=== PATIENT | female | born 1955 | race Caucasian/White ===

== ENCOUNTER → 2023-08-09 18:24 | Outpatient (REF) | payer MEDICARE, BC, SELFPAY | LOC: WDC 18:24 | PROVIDERS: ATTENDING PHYSICIAN Radiology Radiation Oncology; FAMILY PHYSICIAN Family Medicine | DX: Z12.31 Encounter for screening mammogram for malignant neoplasm of breast (principal) | CPT/HCPCS: 77063; 77067 ==

== ENCOUNTER → 2023-08-11 15:51 | Outpatient (REF) | payer MEDICARE, BC, SELFPAY | LOC: HWRAD 15:51 | PROVIDERS: ATTENDING PHYSICIAN Nurse Practitioner; FAMILY PHYSICIAN Family Medicine | DX: M54.2 Cervicalgia (principal) | CPT/HCPCS: 72052 ==

== ENCOUNTER → 2023-08-12 06:59 | Outpatient (REF) | payer MEDICARE, BC, SELFPAY ==
[2023-08-12 09:32] LABS: Glycohemoglobin (HgbA1c) 6.3 % (4.0-5.6)
[2023-08-12 10:53] LABS: ALT (SGPT) 21 U/L (0-35); AST (SGOT) 20 U/L (14-36); Albumin 3.8 g/dl (3.5-5.0); Alkaline Phosphatase 77 U/L (38-126); Blood Urea Nitrogen 24 mg/dl (7-17); Calcium 9.4 mg/dl (8.4-10.2); Carbon Dioxide 27 mmol/L (22-30); Chloride 104 mmol/L (98-107); Glucose 91 mg/dl (70-99); HDL Cholesterol 64 mg/dl; LDL Cholesterol, Calculated 65 mg/dl; Potassium 3.7 mmol/L (3.5-5.1); Sodium 141 mmol/L (135-145); Total Bilirubin 1.1 mg/dl (0.2-1.3); Total Cholesterol 155 mg/dl (50-199); Total Protein 6.9 g/dl (6.3-8.2); Triglyceride 132 mg/dl (10-149); Very Low Density Lipoprotein 26 mg/dl (0-30); eGFR > 60.00
== END ==
LOC: HWLAB 06:59
PROVIDERS: ATTENDING PHYSICIAN Family Medicine
DX: E11.69 Type 2 diabetes mellitus with other specified complication (principal)
CPT/HCPCS: 36415; 80053; 80061; 83036

== ENCOUNTER → 2023-08-13 15:53 | Outpatient (REF) | payer MEDICARE, BC, SELFPAY | LOC: HWRAD 15:53 | PROVIDERS: ATTENDING PHYSICIAN Podiatrist Foot Surgery; FAMILY PHYSICIAN Family Medicine | DX: M79.672 Pain in left foot (principal); M25.572 Pain in left ankle and joints of left foot | CPT/HCPCS: 73610; 73630 ==

== ENCOUNTER → 2023-08-25 07:11 | Outpatient (REF) | payer MEDICARE, BC, SELFPAY ==
[2023-08-25 09:52] LABS: % Basophils 0.8 % (0-2); % Eosinophils 3.9 % (0-6); % Immature Granulocytes 0.2 % (0-0.5); % Lymphocytes 12.3 % (20.5-51.1); % Monocytes 11.2 % (1.7-9.3); % Neutrophils 71.6 % (42.2-75.2); Absolute Eosinophils 0.2 10^3/uL (0-0.7); Absolute Lymphocytes 0.6 10^3/uL (1.2-3.4); Absolute Monocytes 0.6 10^3/uL (0.1-0.6); Absolute Neutrophils 3.7 10^3/uL (1.4-6.5); Hematocrit 37.5 % (37.0-47.0); Hemoglobin 12.1 g/dL (12.0-16.0); Mean Corp Hgb Conc. 32.3 g/dL (33.0-37.0); Mean Corpuscular Hgb 29.6 pg (27.0-31.0); Mean Corpuscular Volume 91.7 fL (81.0-99.0); Mean Platelet Volume 9.7 fL (7.4-10.4); Nucleated Red Blood Cells % 0 %; Platelet Count 216 10^3/uL (130-400); Red Blood Cell Count 4.09 10^6/uL (4.20-5.40); Red Cell Dist. Width 13.2 % (11.5-14.5); White Blood Cell Count 5.1 10^3/uL (4.8-10.8)
[2023-08-25 10:06] LABS: Erythrocyte Sed Rate 59 mm/hour (0-20)
[2023-08-25 10:28] LABS: C-Reactive Protein < 5.00 mg/L (0.0-10.00)
== END ==
LOC: HWLAB 07:11
PROVIDERS: ATTENDING PHYSICIAN Hospitalist; FAMILY PHYSICIAN Family Medicine
DX: M15.4 Erosive (osteo)arthritis (principal); Z79.899 Other long term (current) drug therapy
CPT/HCPCS: 36415; 85025; 85652; 86140

== ENCOUNTER → 2024-02-18 07:01 | Outpatient (REF) | payer MEDICARE, BC, SELFPAY ==
[2024-02-18 09:57] LABS: Urine Albumin Negative (Neg - Trace); Urine Bilirubin Negative (Negative); Urine Character Clear (Clear); Urine Color Yellow; Urine Glucose Negative (Negative); Urine Ketone Negative (Negative); Urine Leukocyte Trace (Negative); Urine Nitrite Negative (Negative); Urine Occult Blood Negative (Negative); Urine Specific Gravity 1.015 (<1.030); Urine Urobilinogen Negative (Neg - 1+)
[2024-02-18 10:25] LABS: ALT (SGPT) 25 U/L (0-35); AST (SGOT) 28 U/L (14-36); Albumin 4.3 g/dl (3.5-5.0); Alkaline Phosphatase 91 U/L (38-126); Blood Urea Nitrogen 23 mg/dl (7-17); Calcium 9.6 mg/dl (8.4-10.2); Carbon Dioxide 27 mmol/L (22-30); Chloride 102 mmol/L (98-107); Glucose 104 mg/dl (70-99); HDL Cholesterol 61 mg/dl; LDL Cholesterol, Calculated 76 mg/dl; Potassium 4.2 mmol/L (3.5-5.1); Sodium 143 mmol/L (135-145); Total Cholesterol 158 mg/dl (50-199); Total Protein 6.9 g/dl (6.3-8.2); Triglyceride 109 mg/dl (10-149); Very Low Density Lipoprotein 21 mg/dl (0-30); eGFR > 60.00
[2024-02-18 10:25] LABS: Urine Bacteria Few (Negative); Urine Red Blood Cell 0-2 /HPF (0-2); Urine White Cell 0-2 /HPF (0-5)
[2024-02-18 10:52] LABS: Microalbumin, Random Urine <0.6 mg/dl (0.6-1.7)
[2024-02-18 11:00] LABS: Glycohemoglobin (HgbA1c) 6.2 % (4.0-5.6)
== END ==
LOC: HWLAB 07:01
PROVIDERS: ATTENDING PHYSICIAN Family Medicine
DX: E78.2 Mixed hyperlipidemia (principal); E11.69 Type 2 diabetes mellitus with other specified complication
CPT/HCPCS: 36415; 80053; 80061; 81003; 81015; 82043; 82570; 83036

== ENCOUNTER → 2024-08-14 18:02 | Outpatient (REF) | payer MEDICARE, BC, SELFPAY | LOC: WDC 18:02 | PROVIDERS: ATTENDING PHYSICIAN Family Medicine Geriatric Medicine; FAMILY PHYSICIAN Family Medicine | DX: Z12.31 Encounter for screening mammogram for malignant neoplasm of breast (principal) | CPT/HCPCS: 77063; 77067 ==

== ENCOUNTER → 2024-08-18 07:05 | Outpatient (REF) | payer MEDICARE, BC, SELFPAY ==
[2024-08-18 09:47] LABS: ALT (SGPT) 22 U/L (0-35); AST (SGOT) 25 U/L (14-36); Albumin 4.5 g/dl (3.5-5.0); Alkaline Phosphatase 97 U/L (38-126); Blood Urea Nitrogen 25 mg/dl (7-17); Calcium 9.8 mg/dl (8.4-10.2); Carbon Dioxide 27 mmol/L (22-30); Chloride 102 mmol/L (98-107); Glucose 109 mg/dl (70-99); HDL Cholesterol 64 mg/dl; LDL Cholesterol, Calculated 89 mg/dl; Potassium 4.2 mmol/L (3.5-5.1); Sodium 139 mmol/L (135-145); Total Bilirubin 1.4 mg/dl (0.2-1.3); Total Cholesterol 172 mg/dl (50-199); Total Protein 7.2 g/dl (6.3-8.2); Triglyceride 97 mg/dl (10-149); Very Low Density Lipoprotein 19 mg/dl (0-30); eGFR > 60.00
[2024-08-18 10:07] LABS: Vitamin D, 25-OH*** 33.9 ng/mL (30-80)
[2024-08-18 11:13] LABS: Erythrocyte Sed Rate 57 mm/hour (0-20)
[2024-08-18 11:58] LABS: Glycohemoglobin (HgbA1c) 6.3 % (4.0-5.6)
== END ==
LOC: HWLAB 07:05
PROVIDERS: ATTENDING PHYSICIAN Hospitalist; FAMILY PHYSICIAN Family Medicine
DX: E11.69 Type 2 diabetes mellitus with other specified complication (principal); E55.9 Vitamin D deficiency, unspecified; Z79.899 Other long term (current) drug therapy
CPT/HCPCS: 36415; 80053; 80061; 82306; 83036; 85652

== ENCOUNTER → 2024-12-28 13:31 | Outpatient (REF) | payer MEDICARE, BC, SELFPAY | LOC: HWRAD 13:31 | PROVIDERS: ATTENDING PHYSICIAN Internal Medicine Hematology & Oncology; FAMILY PHYSICIAN Family Medicine | DX: Z13.820 Encounter for screening for osteoporosis (principal); C50.911 Malignant neoplasm of unspecified site of right female breast; M81.0 Age-related osteoporosis without current pathological fracture | CPT/HCPCS: 77080 ==

== ENCOUNTER → 2025-02-23 06:50 | Outpatient (REF) | payer MEDICARE, BC, SELFPAY ==
[2025-02-23 09:55] LABS: Hematocrit 38.9 % (37.0-47.0); Hemoglobin 12.6 g/dL (12.0-16.0); Mean Corp Hgb Conc. 32.4 g/dL (33.0-37.0); Mean Corpuscular Volume 92.0 fL (81.0-99.0); Nucleated Red Blood Cells % 0 %; Platelet Count 203 10^3/uL (130-400); Red Cell Dist. Width 12.9 % (11.5-14.5)
[2025-02-23 10:15] LABS: ALT (SGPT) 22 U/L (0-35); AST (SGOT) 25 U/L (14-36); Albumin 4.2 g/dl (3.5-5.0); Alkaline Phosphatase 89 U/L (38-126); Blood Urea Nitrogen 22 mg/dl (7-17); Calcium 9.1 mg/dl (8.4-10.2); Carbon Dioxide 28 mmol/L (22-30); Chloride 108 mmol/L (98-107); Glucose 106 mg/dl (70-99); HDL Cholesterol 67 mg/dl; LDL Cholesterol, Calculated 67 mg/dl; Potassium 4.2 mmol/L (3.5-5.1); Sodium 141 mmol/L (135-145); Total Protein 6.8 g/dl (6.3-8.2); Very Low Density Lipoprotein 15 mg/dl (0-30); eGFR > 60.00
[2025-02-23 10:44] LABS: Microalb - Urine Creatinine 79.200 mg/dl
[2025-02-23 10:46] LABS: Microalbumin, Random Urine 1.0 mg/dl (0.6-1.7)
[2025-02-23 12:07] LABS: Glycohemoglobin (HgbA1c) 6.3 % (4.0-5.6)
== END ==
LOC: HWLAB 06:50
PROVIDERS: ATTENDING PHYSICIAN Hospitalist; FAMILY PHYSICIAN Family Medicine
DX: M15.4 Erosive (osteo)arthritis (principal); M25.50 Pain in unspecified joint; Z79.899 Other long term (current) drug therapy; E11.69 Type 2 diabetes mellitus with other specified complication; E78.2 Mixed hyperlipidemia
CPT/HCPCS: 36415; 80053; 80061; 82043; 82570; 83036; 85025

== ENCOUNTER 2025-04-01 13:47 | Emergency (ER) | payer MEDICARE, BC, SELFPAY ==
[2025-04-01 13:49] VITALS: BP 180/109
--- NOTE | 2025-04-01 14:39 | ED.GENMED ---
History of Present Illness
General
Chief Complaint: Musculo-Skeletal Complaint
Source: patient
Time Seen by Provider: 04/01/25 14:03
History of Present Illness
History of Present Illness:
69-year-old female with past medical history of previous breast cancer, hyperlipidemia, rheumatoid arthritis, GERD presenting to the emergency department for evaluation of pain to the right side of her back that has been ongoing for the last few
months, worse over the last week and into this weekend which is what prompted her to come to the ER. Today patient felt slightly nauseous but this symptom has since resolved, no other associated symptoms. Patient notes pain is made worse with
movement or when laying flat. She notes no change in oral intake to either solids or liquids. She denies any fevers/chills or rigors. No chest pain or shortness of breath. Denies any night sweats or abnormal weight loss, saddle anesthesia, focal
weakness or numbness or any other concerns. Patient notes that she takes daily Celebrex as part of her medication regimen for her rheumatoid arthritis and has been also taking Tylenol but no relief of the pain.
Past History
Past History
ED Past Medical History: Cancer, GERD, Hypercholesterolemia and Other (Rheumatoid arthritis)
ED Past Surgical History: Gynecological
Social History
Tobacco: Non-smoker
Alcohol: None
Drug: None
Personal:
Living: with family
Review of Systems
Review of Systems
All Other Systems: ROS reviewed and negative except as documented in HPI and ROS
Phy Exam
Physical Exam
Physical Exam:
GENERAL: Alert , in no apparent distress when sitting but grimacing with movement and when laying flat
EYE: clear conjunctiva b/l
NECK: Supple
ENT: mmm.
CARDIAC: Regular rate and rhythm .
LUNGS: Clear breath sounds bilaterally, no acute respiratory distress, no wheezes/rales/rhonchi
ABDOMEN: Soft, without focal tenderness, no r/g, no cvat, negative wiley's sign
BACK: limited range of motion 2/2 pain, tenderness right paralumbar, no midline bony tenderness, no rashes
NEUROLOGICAL: Alert and oriented, no focal neuro deficits. Patellar deep tendon reflexes intact and equal bilaterally, sensation grossly intact and equal to light touch bilateral lower extremities
SKIN: Warm and dry, skin intact.
MUSCULOSKELETAL: No edema, well perfused. EHL intact bilaterally
PSYCH: Normal and appropriate interaction.
Scores
Heart Failure Risk
Heart Failure Risk Score: Not Applicable
Heart Score for Chest Pain Patients
STEMI patient?: Not applicable
Withdrawal Assessment of Alcohol
Withdrawal Assessment Completed?: Not applicable
Course
Orders/Labs/Results
Orders:
Orders
04/01/25 14:25
CR Lumbar Spine Comp Min 4 Vw* Urgent
Comment:
Reason For Exam: low back pain
04/01/25 14:46
Complete Blood Count/With Diff Urgent
Comprehensive Metabolic Panel Urgent
Lipase Urgent
04/01/25 15:40
Urinalysis Reflex To Culture Urgent
Date Specimen was Collected: 04/01/25
Time Specimen was Collected: 15:37
04/01/25 16:25
Diazepam [Valium] 5 mg PO NOW STA
Abnormal Lab Results
04/01/25
14:46
MCHC 32.1 L g/dL
(33.0-37.0)
Absolute Lymphs (auto) 0.6 L 10^3/uL
(1.2-3.4)
Neutrophils % 80.0 H %
(42.2-75.2)
Lymphocytes % 9.9 L %
(20.5-51.1)
BUN 21 H mg/dl
(7-17)
Glucose 172 H mg/dl
(70-99)
04/01/25 14:46
04/01/25 14:46
Vital Signs
Initial and Last Documented VS:
Initial Vital Signs
Temp Pulse Resp BP Pulse Ox
98.2 F 69 18 180/109 96
04/01/25 13:49 04/01/25 13:49 04/01/25 13:49 04/01/25 13:49 04/01/25 13:49
Last Documented Vital Signs
Temp Pulse Resp BP Pulse Ox
98.2 F 60 18 177/67 97
04/01/25 13:49 04/01/25 16:32 04/01/25 16:32 04/01/25 16:32 04/01/25 16:32
MDM/Problems Addressed
Differential Diagnosis Includes:
Lumbar strain
DDD
Disc herniation
Nerve impingement
UTI/pyelo
Renal/ureteral colic
Cholelithiasis/cholecystitis
Appy
MDM/Problems Addressed:
69-year-old female presenting to the emergency department for evaluation of right-sided back pain that has been ongoing for a few months but worse over the last week. Patient states that today the pain seemed to be radiating a little bit closer to
her abdomen and was much more constant and uncomfortable which is why she decided to come to the emergency department today. She did have some nausea earlier but this has since been resolved. No other associated symptoms, GI symptoms, urinary
symptoms, respiratory symptoms. Patient does have risk factors for infectious etiology being immunosuppressed on her hydroxychloroquine and RA med however I am less suspicious for an acute infectious etiology given lack of other infectious
symptoms. Will check labs and urine. Patient declining anything for pain.
Chronic conditions affecting care: Immunosuppressed
*Radiology
Radiology exam reviewed: radiology read reviewed
*Pulse Oximetry
SaO2: 96
Oxygen Mode of Delivery: Room air
Patient hypoxic: no
*Critical Care Note
Total Time (30-74mins, 75-104mins- exclusive of procedures): Not Applicable
Data Reviewed
Review of Other/Old Records Reveals: Labs and Records
Source: patient and records
Patient Management
Escalation/DeEscalation of care consider admission/obs:
Patient's workup is unremarkable outside of x-ray showing degenerative changes throughout the entire lumbar spine. At this time I do think is reasonable for patient to be discharged home, close follow-up with primary care provider. Aware of return
precautions to the ER.
ED Attending Note
-
Portions of this chart may have been created with voice recognition software.� Occasional wrong word or��sound alike� substitutions may have occurred due to the inherent limitations of voice recognition software.
Discharge Plan
Departure
Patient Disposition: Home (Routine Discharge)
Date of Disposition: 04/01/25
Time of Disposition: 16:20
Patient with high blood pressure during this ER visit?: Yes
Discharge Problem:
Low back pain
Instructions: Low back pain - ED (DC)
Prescriptions:
New
methylprednisolone [Medrol (Richardson)] 4 mg tablets,dose pack
4 mg PO DIRECTED Qty: 21 0RF
diazepam [Valium] 5 mg tablet
5 mg PO BID PRN (Reason: muscle spasm) Qty: 8 0RF
No Action
atorvastatin 40 MG tablet
40 mg PO QPM
rabeprazole [AcipHex] 20 MG tablet,delayed release (DR/EC)
20 mg PO DAILY
acetaminophen [Tylenol Arthritis Pain] 650 MG tablet extended release
650 - 1,300 mg PO PRN PRN (Reason: pain)
etodolac 400 MG tablet
400 mg PO BID
loratadine 10 MG tablet
10 mg PO DAILY
polyvinyl alcohol-povidone(PF) [Refresh Classic (PF)] 10 DROPS dropperette
1 drp BOTH EYES PRN PRN (Reason: dry eyes)
ergocalciferol (vitamin D2) 50 MCG capsule
1.25 mcg PO Q48H
hydrocodone-acetaminophen 1 TABLET tablet
1 tab PO Q4HPRN PRN (Reason: pain>4/10) Qty: 20 0RF
Rx Instructions:
take with daily stool softener
Referrals:
Dylan Barragan MD [Family Provider, Family Practice]
Interventions
Interventions:
*Risk Screen - Suicide Last Done: 04/01/25 13:49
*General Assessment Last Done: 04/01/25 13:49
*Neglect/Abuse Screening Last Done: 04/01/25 13:49
*ED COVID-19 Vaccine History Last Done: 04/01/25 15:17
*ED Influenza Vaccine History Last Done: 04/01/25 15:17
*Nursing Disposition Last Done: 04/01/25 16:26
ED-Musculoskeletal Assessment Last Done: 04/01/25 15:17
Discharge Date and Time
Discharge Date/Time: 04/01/25 16:37
Print Language: SPANISH
[2025-04-01 14:52] LABS: Hematocrit 41.4 % (37.0-47.0); Hemoglobin 13.3 g/dL (12.0-16.0); Mean Corp Hgb Conc. 32.1 g/dL (33.0-37.0); Mean Corpuscular Volume 89.8 fL (81.0-99.0); Nucleated Red Blood Cells % 0 %; Platelet Count 239 10^3/uL (130-400); Red Cell Dist. Width 12.9 % (11.5-14.5)
[2025-04-01 15:07] LABS: ALT (SGPT) 31 U/L (0-35); AST (SGOT) 27 U/L (14-36); Albumin 4.2 g/dl (3.5-5.0); Alkaline Phosphatase 98 U/L (38-126); Blood Urea Nitrogen 21 mg/dl (7-17); Calcium 9.6 mg/dl (8.4-10.2); Carbon Dioxide 28 mmol/L (22-30); Chloride 105 mmol/L (98-107); Glucose 172 mg/dl (70-99); Lipase 75 U/L (23-300); Potassium 3.9 mmol/L (3.5-5.1); Sodium 139 mmol/L (135-145); Total Protein 7.4 g/dl (6.3-8.2); eGFR > 60.00
[2025-04-01 16:11] LABS: Urine Character Clear (Clear)
[2025-04-01] MEDS: VALIUM 5 MG PO (16:31)
[2025-04-01 16:32] VITALS: BP 177/67
== END 2025-04-01 16:37 | disposition home or self-care (01) ==
LOC: EMR 13:47
PROVIDERS: Physician Assistant Medical; EMERGENCY PHYSICIAN Emergency Medicine; FAMILY PHYSICIAN Family Medicine
DX: M54.50 Low back pain, unspecified (principal); E78.00 Pure hypercholesterolemia, unspecified; M06.9 Rheumatoid arthritis, unspecified; Z85.3 Personal history of malignant neoplasm of breast; Z79.69 Long term (current) use of other immunomodulators and immunosuppressants
CPT/HCPCS: 99284; 72110; 80053; 81003; 83690; 85025